=== PATIENT | male | born 1980 | race Caucasian/White ===

== ENCOUNTER 2020-06-19 10:17 | Emergency (ER) | payer BC, OTHER ==
--- NOTE | 2020-06-19 11:05 | CR ---
Chest: Portable view of the chest was obtained. Comparison: Prior chest x-ray of 08/15/14. Heart size appears within normal limits for portable technique. Central pulmonary vessels are increased which appear fairly stable from prior exam. Lungs otherwise are clear and no acute parenchymal change. Bony structures are grossly intact. Impression: 1. Findings as noted above. 2. Nothing acute is appreciated. Diagnostic code #2 This report was dictated in MDT
[2020-06-19] MEDS ORDERED: Aspirin 81 MG Tab.Chew PO ONE (11:16)
--- NOTE | 2020-06-19 11:28 | EDM.PDOC ---
ED HPI GENERAL MEDICAL PROBLEM - General Chief Complaint: Chest Pain Stated Complaint: CHEST TIGHTNESS Time Seen by Provider: 06/19/20 11:04 Source of Information: Reports: Patient History Limitations: Reports: No Limitations - History of Present Illness INITIAL COMMENTS - FREE TEXT/NARRATIVE: Patient is a 39-year-old male presenting to the emergency department with complaints of a 4-day history of chest discomfort. He describes it as a constant mild tightness in his chest with episodes of worsening discomfort. He denies any shortness of breath, diaphoresis, nausea, or vomiting associated with this. Patient has a history of an episode of chest pain in [address] elevation and elevated troponins, however when he went into cardiac cath, they were unable to find any blockage. He has had no further cardiac history since that time. Denies any recreational drug use. He states he took some Tums prior to coming to ER thinking maybe is heartburn, however did not have much relief with it. Chest Pain Score (Numeric/FACES): 6 - Related Data Allergies Allergy/AdvReac Type Severity Reaction Status Date / Time No Known Allergies Allergy Verified 08/15/14 18:49 Home Meds: Home Meds Amoxicillin. 08/15/14 [History] Past Medical History - Past Health History Medical/Surgical History: Denies Medical/Surgical History - Past Surgical History Cardiovascular Surgical History: Reports: Other (See Below) Other Cardiovascular Surgeries/Procedures: pt reports that he had chest pain in 2014 with elevated cardiac enzymes, but the angiogram was negative, no stents placed, and states he was told he was not having a heart attack Social & Family History - Tobacco Use Smoking Status *Q: Never Smoker ED ROS GENERAL - Review of Systems Review Of Systems: See Below Constitutional: Reports: No Symptoms. Denies: Fever, Chills, Weakness HEENT: Reports: No Symptoms Respiratory: Reports: No Symptoms. Denies: Shortness of Breath, Cough Cardiovascular: Reports: Chest Pain. Denies: Dyspnea on Exertion, Lightheadedness, Syncope Endocrine: Reports: No Symptoms GI/Abdominal: Reports: No Symptoms : Reports: No Symptoms Musculoskeletal: Reports: No Symptoms Skin: Reports: No Symptoms Neurological: Reports: No Symptoms Psychiatric: Reports: No Symptoms Hematologic/Lymphatic: Reports: No Symptoms Immunologic: Reports: No Symptoms ED EXAM, GENERAL - Physical Exam Exam: See Below General Appearance: Alert, WD/WN, No Apparent Distress Respiratory/Chest: No Respiratory Distress, Lungs Clear, Normal Breath Sounds, No Accessory Muscle Use, Chest Non-Tender Cardiovascular: Normal Peripheral Pulses, Regular Rate, Rhythm, No Edema, No Gallop, No JVD, No Murmur, No Rub GI/Abdominal: Normal Bowel Sounds, Soft, Non-Tender, No Organomegaly, No Distention, No Abnormal Bruit, No Mass Neurological: Alert, Oriented, CN II-XII Intact, Normal Cognition, Normal Gait, Normal Reflexes, No Motor/Sensory Deficits Psychiatric: Normal Affect, Normal Mood Skin Exam: Warm, Dry, Intact, Normal Color, No Rash Course - Vital Signs Last Recorded V/S: Last Vital Signs Temp 97.8 F 06/19/20 10:33 Pulse 70 06/19/20 12:12 Resp 16 06/19/20 12:12 BP 118/84 06/19/20 12:12 Pulse Ox 97 06/19/20 12:12 - Orders/Labs/Meds Labs: Laboratory Tests 06/19/20 06/19/20 06/19/20 Range/Units 10:50 10:50 10:58 WBC 3.50 L (4.23-9.07) K/mm3 RBC 5.22 (4.63-6.08) M/mm3 Hgb 15.3 (13.7-17.5) gm/dl Hct 43.5 (40.1-51.0) % MCV 83.3 (79.0-92.2) fl MCH 29.3 (25.7-32.2) pg MCHC 35.2 (32.2-35.5) g/dl RDW Std Deviation 40.5 (35.1-43.9) fL Plt Count 162 L (163-337) K/mm3 MPV 9.2 L (9.4-12.3) fl Neut % (Auto) 47.4 (34.0-67.9) % Lymph % (Auto) 37.1 (21.8-53.1) % Mcdowell % (Auto) 10.9 (5.3-12.2) % Eos % (Auto) 3.7 (0.8-7.0) Baso % (Auto) 0.6 (0.1-1.2) % Neut # (Auto) 1.66 L (1.78-5.38) K/mm3 Lymph # (Auto) 1.30 L (1.32-3.57) K/mm3 Mcdowell # (Auto) 0.38 (0.30-0.82) K/mm3 Eos # (Auto) 0.13 (0.04-0.54) K/mm3 Baso # (Auto) 0.02 (0.01-0.08) K/mm3 D-Dimer, Quantitative 0.27 (0.19-0.50) mg/L Sodium 141 (136-145) mEq/L Potassium 3.5 (3.5-5.1) mEq/L Chloride 103 (98-107) mEq/L Carbon Dioxide 28 (21-32) mEq/L Anion Gap 13.5 (5-15) BUN 13 (7-18) mg/dL Creatinine 1.1 (0.7-1.3) mg/dL Est Cr Clr Drug Dosing 99.94 mL/min Estimated GFR (MDRD) > 60 (>60) mL/min BUN/Creatinine Ratio 11.8 L (14-18) Glucose 109 H (74-106) mg/dL Calcium 9.1 (8.5-10.1) mg/dL Total Bilirubin 0.4 (0.2-1.0) mg/dL AST 15 (15-37) U/L ALT 37 (16-63) U/L Alkaline Phosphatase 74 (46-116) U/L Troponin I < 0.017 (0.00-0.056) ng/mL Total Protein 7.9 (6.4-8.2) g/dl Albumin 3.7 (3.4-5.0) g/dl Globulin 4.2 gm/dL Albumin/Globulin Ratio 0.9 L (1-2) Meds: Medications Discontinued Medications Generic Name Dose Route Start Last Admin Trade Name Freq PRN Reason Stop Dose Admin Aspirin 324 mg 06/19/20 11:16 06/19/20 11:21 Aspirin PO 06/19/20 11:17 324 mg ONETIME ONE Administration Ketorolac Tromethamine 30 mg 06/19/20 11:38 06/19/20 11:47 Toradol IVPUSH 06/19/20 11:39 Not Given ONETIME ONE - Re-Assessments/Exams Free Text/Narrative Re-Assessment/Exam: 06/19/20 12:02 Patient's work-up was grossly unremarkable. Troponin negative, d-dimer negative, EKG shows no acute ischemia, chest x-ray was normal. Discussed with patient that the source of pain is likely musculoskeletal. Toradol was offered, however he declined. Patient states that about a week ago he fell off of a paddle board and hit his left lateral chest. He is wondering if this could be related. I did discuss that there is a possibility. Recommend [id number] Tylenol ibuprofen as needed. Discharge instructions as documented. Departure - Departure Time of Disposition: 12:03 Disposition: Home, Self-Care 01 Condition: Good Clinical Impression: Atypical chest pain Instructions: Chest Wall Pain, [id number] Referrals: PCP,Not In Area [Primary Care Provider] - Forms: ED Department Discharge Additional Instructions: You were seen in the emergency department today for 4 days of chest pain. Your work-up included blood work, an EKG of your heart, and a chest x-ray. Your work-up was found to be normal. You are not having a heart attack and you do not have a blood clot in your lungs. As we discussed, the likely cause your pain is musculoskeletal in nature. Recommend [id number] Tylenol and ibuprofen as needed for discomfort. Apply heat to the area may also be beneficial. Return to the ER with any new or worsening symptoms of concern. Sepsis Event Note (ED) - Evaluation Sepsis Screening Result: No Definite Risk - Focused Exam Vital Signs: Vital Signs Temp Pulse Resp BP Pulse Ox 06/19/20 12:12 70 16 118/84 97 06/19/20 10:33 97.8 F 71 16 137/86 98
[2020-06-19] MEDS ORDERED: Ketorolac 30 MG/ML SDV IVPUSH ONE (11:38)
== END 2020-06-19 12:11 | disposition home or self-care (01) ==
LOC: JD.ED 10:17
DX: R07.89 Other chest pain (principal)
CPT/HCPCS: 36415; 71045; 80053; 84484; 85025; 85379; 93005; 99285; A9270; 93010; 99284

== ENCOUNTER 2021-07-15 17:07 | Emergency (ER) | payer BC, OTHER ==
--- NOTE | 2021-07-15 17:45 | EDM.PDOC ---
ED HPI GENERAL MEDICAL PROBLEM - General Chief Complaint: Chest Pain Stated Complaint: CHEST PAIN Time Seen by Provider: 07/15/21 17:29 Source of Information: Reports: Patient, RN Notes Reviewed History Limitations: Reports: No Limitations - History of Present Illness INITIAL COMMENTS - FREE TEXT/NARRATIVE: Patient is a 41-year-old male who presents to the ER for his midsternal chest discomfort. Patient states he does have a history of elevated troponins, and EKG changes many years ago. He states he was sent to [place] for management of this, he had a cardiac catheterization and everything was "normal". I did review this visit, and his troponin was as high as 9.4, and he did have some apparent ST elevation and was considered a STEMI at that time. States further cardiac work-up after this has been pretty much unremarkable. So he has been having ongoing issues with this for some time. But he states for the last couple weeks, he has had some intermittent chest pressure/discomfort. No real pain for the most part. Not having any severe nausea/vomiting/diarrhea, no fevers or chills, cough or shortness of breath. Patient took some ibuprofen at one time when the pain was at its worst, he states that he thought it kind of helped. Chest Pain Score (Numeric/FACES): 4 - Related Data Allergies Allergy/AdvReac Type Severity Reaction Status Date / Time No Known Allergies Allergy Verified 07/15/21 17:18 Home Meds: Home Meds . [No Known Home Meds] 07/15/21 [History] Past Medical History - Past Health History Medical/Surgical History: Denies Medical/Surgical History - Past Surgical History Cardiovascular Surgical History: Reports: Other (See Below) Other Cardiovascular Surgeries/Procedures: pt reports that he had chest pain in 2014 with elevated cardiac enzymes, but the angiogram was negative, no stents placed, and states he was told he was not having a heart attack Social & Family History - Tobacco Use Tobacco Use Status *Q: Never Tobacco User Second Hand Smoke Exposure: No - Caffeine Use Caffeine Use: Reports: Coffee - Recreational Drug Use Recreational Drug Use: No ED ROS GENERAL - Review of Systems Review Of Systems: Comprehensive ROS is negative, except as noted in HPI. ED EXAM, GENERAL - Physical Exam Exam: See Below Exam Limited By: No Limitations General Appearance: Alert, WD/WN, No Apparent Distress Respiratory/Chest: No Respiratory Distress, Lungs Clear, Normal Breath Sounds, No Accessory Muscle Use, Chest Non-Tender Cardiovascular: Normal Peripheral Pulses, Regular Rate, Rhythm, No Edema GI/Abdominal: Normal Bowel Sounds, Soft, Non-Tender, No Distention, No Mass Extremities: Normal Inspection, Normal Capillary Refill Neurological: Alert, Oriented, Normal Cognition, No Motor/Sensory Deficits Psychiatric: Normal Affect, Normal Mood Skin Exam: Warm, Dry, Intact, Normal Color, No Rash #1 Interpretation EKG Date: 07/15/21 Time: 17:43 Rhythm: NSR Rate (Beats/Min): 83 [place]atiot: LAD-Left Gratiot Deviation (-18 ) P-Wave: Present QRS: Normal ST-T: Normal QT: Normal Comparison: No Change EKG Interpretation Comments: No obvious ischemia or acute ST changes noted, reviewed by myself and Dr. Riley. EKG does appear comparable to his EKG done last 2019. Dr. Riley did appreciate mild Q waves in leads I and aVL, and possibly II and aVF consider old lateral/inferior wall NM. Course - Vital Signs Last Recorded V/S: Last Vital Signs Temp 97.6 F 07/15/21 17:17 Pulse 79 07/15/21 17:17 Resp 20 07/15/21 17:17 BP 136/92 H 07/15/21 17:17 Pulse Ox 99 07/15/21 17:17 - Orders/Labs/Meds Orders: Active Orders 24 hr Category Date Time Status EKG 12 Lead [EK] Stat Ther 07/15/21 17:21 Ordered Labs: Laboratory Tests 07/15/21 07/15/21 07/15/21 Range/Units 17:20 17:38 17:38 WBC 4.29 (4.23-9.07) K/mm3 RBC 5.56 (4.63-6.08) M/mm3 Hgb 16.1 (13.7-17.5) gm/dl Hct 46.5 (40.1-51.0) % MCV 83.6 (79.0-92.2) fl MCH 29.0 (25.7-32.2) pg MCHC 34.6 (32.2-35.5) g/dl RDW Std Deviation 42.4 (35.1-43.9) fL Plt Count 175 (163-337) K/mm3 MPV 9.4 (9.4-12.3) fl Neut % (Auto) 51.1 (34.0-67.9) % Lymph % (Auto) 30.5 (21.8-53.1) % Cross % (Auto) 11.9 (5.3-12.2) % Eos % (Auto) 5.8 (0.8-7.0) Baso % (Auto) 0.5 (0.1-1.2) % Neut # (Auto) 2.19 (1.78-5.38) K/mm3 Lymph # (Auto) 1.31 L (1.32-3.57) K/mm3 Cross # (Auto) 0.51 (0.30-0.82) K/mm3 Eos # (Auto) 0.25 (0.04-0.54) K/mm3 Baso # (Auto) 0.02 (0.01-0.08) K/mm3 PT (9.7-12.0) SECONDS INR APTT (21.7-31.4) SECONDS D-Dimer, Quantitative (0.19-0.50) mg/L Sodium 139 (136-145) mEq/L Potassium 3.8 (3.5-5.1) mEq/L Chloride 103 (98-107) mEq/L Carbon Dioxide 29 (21-32) mEq/L Anion Gap 10.8 (5-15) BUN 13 (7-18) mg/dL Creatinine 1.1 (0.7-1.3) mg/dL Est Cr Clr Drug Dosing 97.98 mL/min Estimated GFR (MDRD) > 60 (>60) mL/min BUN/Creatinine Ratio 11.8 L (14-18) Glucose 90 (70-99) mg/dL Calcium 8.9 (8.5-10.1) mg/dL Total Bilirubin 0.5 (0.2-1.0) mg/dL AST 20 (15-37) U/L ALT 35 (16-63) U/L Alkaline Phosphatase 80 (46-116) U/L Troponin I (0.00-0.056) ng/mL C-Reactive Protein <0.2 (<1.0) mg/dL NT-Pro-B Natriuret Pep (0-125) pg/mL Total Protein 8.6 H (6.4-8.2) g/dl Albumin 4.0 (3.4-5.0) g/dl Globulin 4.6 gm/dL Albumin/Globulin Ratio 0.9 L (1-2) SARS-CoV-2 RNA (ROMEL) Negative (NEGATIVE) 07/15/21 07/15/21 07/15/21 Range/Units 17:38 17:38 17:38 WBC (4.23-9.07) K/mm3 RBC (4.63-6.08) M/mm3 Hgb (13.7-17.5) gm/dl Hct (40.1-51.0) % MCV (79.0-92.2) fl MCH (25.7-32.2) pg MCHC (32.2-35.5) g/dl RDW Std Deviation (35.1-43.9) fL Plt Count (163-337) K/mm3 MPV (9.4-12.3) fl Neut % (Auto) (34.0-67.9) % Lymph % (Auto) (21.8-53.1) % Cross % (Auto) (5.3-12.2) % Eos % (Auto) (0.8-7.0) Baso % (Auto) (0.1-1.2) % Neut # (Auto) (1.78-5.38) K/mm3 Lymph # (Auto) (1.32-3.57) K/mm3 Cross # (Auto) (0.30-0.82) K/mm3 Eos # (Auto) (0.04-0.54) K/mm3 Baso # (Auto) (0.01-0.08) K/mm3 PT 10.8 (9.7-12.0) SECONDS INR 0.97 APTT 25.2 (21.7-31.4) SECONDS D-Dimer, Quantitative 0.26 (0.19-0.50) mg/L Sodium (136-145) mEq/L Potassium (3.5-5.1) mEq/L Chloride (98-107) mEq/L Carbon Dioxide (21-32) mEq/L Anion Gap (5-15) BUN (7-18) mg/dL Creatinine (0.7-1.3) mg/dL Est Cr Clr Drug Dosing mL/min Estimated GFR (MDRD) (>60) mL/min BUN/Creatinine Ratio (14-18) Glucose (70-99) mg/dL Calcium (8.5-10.1) mg/dL Total Bilirubin (0.2-1.0) mg/dL AST (15-37) U/L ALT (16-63) U/L Alkaline Phosphatase (46-116) U/L Troponin I < 0.017 (0.00-0.056) ng/mL C-Reactive Protein (<1.0) mg/dL NT-Pro-B Natriuret Pep 16 (0-125) pg/mL Total Protein (6.4-8.2) g/dl Albumin (3.4-5.0) g/dl Globulin gm/dL Albumin/Globulin Ratio (1-2) SARS-CoV-2 RNA (ROMEL) (NEGATIVE) - Re-Assessments/Exams Free Text/Narrative Re-Assessment/Exam: 07/15/21 17:45 Patient presents to the ER for evaluation of his midsternal chest pain, we will go ahead get a EKG, chest x-ray and basic labs for evaluation. Patient does not really account anything that really makes this better or worse, he states that she is "there". 07/15/21 18:41 Patient's laboratory evaluation is unremarkable, chest x-ray also was without acute findings. Troponin is negative for today's purposes we will go ahead and have him trial omeprazole for a short time to see if this helps relieve some of the symptoms and have him follow-up with his regular care provider. I do believe the patient should probably start a baby aspirin for generalized heart health. Departure - Departure Time of Disposition: 18:42 Disposition: Home, Self-Care 01 Condition: Good Clinical Impression: Atypical chest pain Instructions: Nonspecific Chest Pain, Adult, [id number] Referrals: PCP,None [Primary Care Provider] - Forms: ED Department Discharge Additional Instructions: You were evaluated in the ER today for your chest pain. Your EKG, chest x-ray, and laboratory evaluation are all unremarkable. Would recommend that you start a medication like omeprazole (Prilosec on a daily basis, to see if this helps relieve some of your symptoms. You may pick this medication up at any retail store and take as directed. This medication can take up to 72 hours to start providing benefit. This would be to suppress acid in your stomach. Would also recommend you start a baby aspirin daily, for generalized heart health due to your cardiac history when you were age 34. Please follow-up with your regular provider for ongoing management of your health. Please return to the ER at any time if symptoms change or worsen. Sepsis Event Note (ED) - Focused Exam Vital Signs: Vital Signs Temp Pulse Resp BP Pulse Ox 07/15/21 17:17 97.6 F 79 20 136/92 H 99 - My Orders Last 24 Hours: My Active Orders 07/15/21 17:21 EKG 12 Lead [EK] Stat - Assessment/Plan Last 24 Hours: My Active Orders 07/15/21 17:21 EKG 12 Lead [EK] Stat
--- NOTE | 2021-07-15 18:00 | CR ---
Chest: Portable view of the chest was obtained. Comparison: Prior chest x-ray of 06/19/20. Heart size and mediastinum are within normal limits for portable technique. Central lung markings are slightly increased which appear chronic. Lungs show nothing acute. Bony structures show nothing acute. Impression: 1. Nothing acute is seen on portable chest x-ray. Diagnostic code #2
== END 2021-07-15 19:19 | disposition home or self-care (01) ==
LOC: JD.ED 17:07
DX: R07.89 Other chest pain (principal); Z20.822 Contact with and (suspected) exposure to COVID-19
CPT/HCPCS: 36415; 71045; 71045-26; 80053; 83880; 84484; 85025; 85379; 85610; 85730; 86140; 93005; 99285-25; U0002

== ENCOUNTER 2022-10-03 01:31 | Inpatient (IN) | payer OTHER ==
[2022-10-03] MEDS ORDERED: Sodium Chloride 0.9% 10 ML Syringe FLUSH PRN (01:54)
[2022-10-03] MEDS ORDERED: Sodium Chloride 0.9% 1,000 ML IV SCH (02:00)
[2022-10-03] MEDS ORDERED: Sodium Chloride 0.9% 1,000 ML IV ONE (02:11)
[2022-10-03] MEDS ORDERED: HYDROmorphone 1 MG/ML Syringe IVPUSH ONE ×2 (02:11→04:14)
[2022-10-03] MEDS ORDERED: Ondansetron 4 MG/2 ML SDV IVPUSH ONE (02:13)
[2022-10-03 02:30] LABS: ESTIMATED GFR 86 mL/min (>60)
[2022-10-03] MEDS ORDERED: Iopamidol 612 MG/ML 100 ML Bottle IVPUSH ONE (03:32)
[2022-10-03] MEDS ORDERED: Ketorolac 30 MG/ML SDV IM PRN (08:01)
[2022-10-03] MEDS: Lactated Ringers 1,000 ML IV SCH ×2 (08:46→17:52)
[2022-10-03] MEDS: Heparin Sodium 5,000 Units/ML Vial SUBCUT SCH ×2 (08:47→15:21)
[2022-10-03] MEDS: HYDROmorphone 0.5 MG/0.5 ML Syringe IVPUSH PRN (08:47)
[2022-10-04] MEDS: Heparin Sodium 5,000 Units/ML Vial SUBCUT SCH ×2 (00:25→07:58)
[2022-10-04] MEDS: HYDROmorphone 0.5 MG/0.5 ML Syringe IVPUSH PRN (02:57)
[2022-10-04] MEDS: Lactated Ringers 1,000 ML IV SCH (02:59)
[2022-10-04] MEDS ORDERED: Albuterol 6.7 GM Inhaler INH PRN (03:33)
[2022-10-04] MEDS ORDERED: Ibuprofen 600 MG Tab PO PRN (03:33)
[2022-10-04] MEDS ORDERED: Magnesium Sulfate/Water 2 GM in Premix Bag 1 BAG IV ONE (07:36)
== END 2022-10-04 16:02 | disposition home or self-care (01) | DRG 390 ==
LOC: JD.ED 01:31 → JD.MS 05:25
PROVIDERS: ADMIT Surgery; ATTEND Surgery
DX: K56.51 Intestinal adhesions [bands], with partial obstruction (principal); Z79.899 Other long term (current) drug therapy
CPT/HCPCS: 36415; 74177; 74177-26; 80053; 81001; 83690; 83735; 84100; 85025; 86140; 94761; 96361; 96374; 96375; 96376; 99285-25; J1170; J1644; J2405; J3475; J3490; J7030; J7120